=== PATIENT | male | born 1980 | race Two or more races ===

== ENCOUNTER 2019-01-22 19:35 | Emergency (ER) | payer OTHER ==
[~2019-01-22] VITALS: Ht 175.3 cm; Wt 88.9 kg
[2019-01-22 20:40] VITALS: BP 143/72
== END 2019-01-22 21:00 | disposition home or self-care (01) ==
LOC: ER 19:38
DX: A08.4 Viral intestinal infection, unspecified (principal); R11.2 Nausea with vomiting, unspecified

== ENCOUNTER 2019-06-21 11:22 | Emergency (ER) | payer OTHER ==
[~2019-06-21] VITALS: Ht 175.3 cm; Wt 88.5 kg
--- NOTE | 2019-06-21 11:25 | NUR ---
PT CAME FROM HOME C/O OF HIP PAIN 4x YEARS. HX OF INGUINAL HERNIA SURGERY IN THE PAST. NOT IN ANY DISTRESS. NO SOB. VITAL SIGNS STABLE PATIENT IS CONNECTED TO MONITOR.
--- NOTE | 2019-06-21 11:46 | NUR ---
SEEN AND EXAMINED BY DR. ANNE.
--- NOTE | 2019-06-21 11:50 | NUR ---
Note lexy in EDM - 06/21/19 at 1156 by GIACOMO PT CAME FROM HOME C/O OF HIP PAIN 4x YEARS. HX OF INGUINAL HERNIA SURGERY IN THE PAST. NOT IN ANY DISTRESS. NO SOB. VITAL SIGNS STABLE PATIENT IS CONNECTED TO MONITOR.
--- NOTE | 2019-06-21 12:12 | NUR ---
DR. DONG AT BEDSIDE FOR EVAL.
[2019-06-21] MEDS ORDERED: KETOROLAC TROMETHAMINE INJ 30 MG/ML VIAL ONE (12:26)
[2019-06-21] MEDS ORDERED: KETOROLAC TROMETHAMINE INJ 30 MG/ML VIAL IM ONE (12:30)
--- NOTE | 2019-06-21 14:57 | NUR ---
Patient discharged to home in stable condition. Written and verbal after care instructions given. Patient verbalizes understanding of instruction.
[2019-06-21 14:58] VITALS: BP 121/78
== END 2019-06-21 14:59 | disposition home or self-care (01) ==
LOC: ER 11:26
DX: M16.11 Unilateral primary osteoarthritis, right hip (principal)
CPT/HCPCS: 73502; 73700; 74176; 96372; 99284; J1885

== ENCOUNTER 2021-06-09 23:11 | Emergency (ER) | payer OTHER ==
[~2021-06-09] VITALS: Ht 175.3 cm; Wt 86.2 kg
--- NOTE | 2021-06-09 23:30 | NUR ---
BIB SELF COMPLAINING OF R EAR PAIN THAT RADIATES DOWN NECK X1 WEEK THAT WORSTENED TODAY. VITAL SIGNS STABLE DENIES SECONDARY COMPLAINTS. TAKEN TO ER BED 3 MD WAS AT BEDSIDE FOR EVAL.
[2021-06-09] MEDS ORDERED: ONDA4TAB5 PO (23:50)
[2021-06-09] MEDS ORDERED: HYDR-3980 PO (23:50)
[2021-06-09] MEDS ORDERED: HYDROCODONE/APAP 10/325MG TABLET ONE (23:52)
[2021-06-09] MEDS ORDERED: ONDANSETRON 4 MG TAB.RAPDIS ONE (23:53)
[2021-06-09] MEDS ORDERED: NEOM10DR11 OT (23:54)
[2021-06-10] MEDS ORDERED: ONDANSETRON 4 MG TAB.RAPDIS SL ONE
[2021-06-10] MEDS ORDERED: HYDROCODONE/APAP 10/325MG TABLET PO ONE
[2021-06-10] MEDS ORDERED: NEOM/POLY B SULF/HC OTIC SUSP 10 ML BOTTLE OT ONE
--- NOTE | 2021-06-10 00:15 | NUR ---
CORTISPORIN OTIC SUSP. UNABLE TO BE ADMINSTERRED DUE TO NOT HAVING THE MEDICATION AVAILABLE IN THE HOSPITAL. MD MADE AWARE AND PRESCRIPTION PROVIDED.
--- NOTE | 2021-06-10 00:21 | NUR ---
PATIENT DISCHARGED HOME IN STABLE CONDITION. PROVIDED WITH VERBAL AND WRITTEN DISCHARGE INSTRUCTIONS AND VERBALIZED UNDERSTANDING. V/S STABLE REPORTS MILD IMPROVEMENT TO EAR PAIN 12/26.
[2021-06-10 00:23] VITALS: BP 129/75
== END 2021-06-10 00:23 | disposition home or self-care (01) ==
LOC: ER 23:13
DX: H60.91 Unspecified otitis externa, right ear (principal); Z79.899 Other long term (current) drug therapy
CPT/HCPCS: 99283; Q0162

== ENCOUNTER 2021-08-11 04:48 | Emergency (ER) | payer OTHER ==
[~2021-08-11] VITALS: Ht 175.3 cm; Wt 83.9 kg
[~2021-08-11 04:48] MED LIST: HYDR-3980 PO; NEOM10DR11 OT; ONDA4TAB5 PO
[2021-08-11 04:59] VITALS: BP 140/90
[2021-08-11] MEDS ORDERED: AZIT250T PO (05:13)
== END 2021-08-11 05:23 | disposition home or self-care (01) ==
LOC: ER 04:49
DX: B34.9 Viral infection, unspecified (principal); Z98.890 Other specified postprocedural states